=== PATIENT | male | born 1960 | race Caucasian/White ===

== ENCOUNTER → 2017-01-25 | Outpatient (CLI) | payer BC ==
--- NOTE | 2017-01-25 21:34 | PN ---
This patient was diagnosed having severe obstructive sleep apnea. Recently on a home sleep study the patient was found to have an apnea-hypopnea index of 49. The patient also demonstrated having severe nocturnal oxygen desaturations. At that point the patient was given an Auto CPAP unit with a minimum pressure of 5, maximum pressure of 20, and the patient is coming in for a compliancy check. He obtained his CPAP machine approximately 3 weeks ago. He is utilizing AirFit P10 nasal pillows. On today's evaluation, the patient has no specific complaints. He is calm and comfortable. He is waking up much more alert and awake during the day and he is happy with the overall clinical response. No snoring at nighttime. He is averaging around 6 to 7 hours of sleep. He goes to bed around 10 p.m., wakes up at 5:30 a.m. in the morning, and he has no major hypersomnia or sleepiness during the day. His Marks score is currently at 7. No sleep paralysis. No hallucinations. No cataplexy. No difficulties in tolerating the CPAP therapy for now. BP is 122/83, pulse 83, respiration 16, temperature 98.4, saturation 95% on room air. Weight is 250. Height is 73 inches. Marks score is 7. Neck size is 17 inches. BMI is 32.8. GENERAL APPEARANCE: Calm, comfortable. HEENT: Short neck. Crowding of posterior pharynx. There is no goiter or neck masses. LUNGS: Diminished breath sounds bilaterally; otherwise clear. Heart sounds are regular rate and rhythm. Normal S1, S2. No S3. No S4. No murmurs. ABDOMEN: Soft, nontender. No organomegaly. EXTREMITIES: There is no edema. There is no cyanosis or clubbing. PLAN: 1. Symptomatic obstructive sleep apnea, severe, with a baseline AHI of 49. The patient is undergoing adequate Auto CPAP therapy. 2. Hypersomnia, improved with CPAP therapy. 3. Snoring, recovered. 4. Obesity with a body mass index of 32.8. PLAN: 1. Encourage weight loss. 2. Obtain CPAP compliancy data from [facility]. The patient seems to be very compliant for now and clinically improved and much more alert and awake during the day. 3. Keep the same settings on the CPAP and keep the same mask interface. 4. See me back in a year's time at the [facility] office for a followup.
== END | disposition home or self-care (01) ==
LOC: SLEEP 14:51
PROVIDERS: ATTEND Internal Medicine Critical Care Medicine
DX: G47.33 Obstructive sleep apnea (adult) (pediatric) (principal); G47.10 Hypersomnia, unspecified; E66.9 Obesity, unspecified; Z68.32 Body mass index [BMI] 32.0-32.9, adult
CPT/HCPCS: 99211

== ENCOUNTER → 2022-12-24 | Outpatient (CLI) | payer BC ==
[2022-12-24 09:16] LABS: African American GFR (CKD) >90 (>60 ml/min/1.73 sqM); Blood Urea Nitrogen 22 mg/dL (9-20); Non-African American GFR(CKD) >90 (>60 ml/min/1.73 sqM)
--- NOTE | 2022-12-24 14:13 | CT ---
EXAMINATION: CT UROGRAM WITHOUT AND WITH IV CONTRAST DATE OF EXAMINATION: 12/24/2022. COMPARISON: None available. INDICATION: Abnormal urine systolically. PROCEDURE: Axial CT of the abdomen and pelvis was performed without and with contrast and sagittal and coronal reformatted images were performed. CT dose lowering techniques were used, to include: aut omated exposure control, adjustment for patient size, and/or use of iterative reconstruction. 100 mL of Isovue-370 was given intravenously. FINDINGS: LOWER CHEST : The visualized lung bases are clear. There are no pleural or pericardial effusions. ABDOMEN: Liver and Biliary system: Normal. Adrenal glands: Normal. Kidneys and ureters: Normal. Spleen: Normal. Pancreas: Normal. Gallbladder: Surgically absent. Lymph nodes, Peritoneum and mesentery: There is no mesenteric or retroperitoneal lymphadenopathy. Gastrointestinal tract: There are no dilated loops of bowel or free intraperitoneal air. The appe ndix is normal. Aorta/IVC: No aortic aneurysm. IVC normal. Abdominal wall: Normal. PELVIS: Fluid: There is no free fluid in the pelvis. Lymph Nodes: There is no pelvic or inguinal lymphadenopathy.. Urinary bladder: Normal. BONES: There are no osseous destructive lesions.. ADDITIONAL SIGNIFICANT FINDINGS: None. IMPRESSION: 1. No renal stones or hydronephrosis. 2. No suspicious renal, urinary tract or bladder lesions otherwise identified. 3. No acute findings identified.
== END | disposition home or self-care (01) ==
LOC: RADCTMAIN 08:38
PROVIDERS: ATTEND Urology
DX: R82.89 Other abnormal findings on cytological and histological examination of urine (principal)
CPT/HCPCS: 82565; 84520; 74178; 36415; 74400; Q9967

== ENCOUNTER → 2023-10-17 | Outpatient (CLI) | payer BC ==
--- NOTE | 2023-10-17 11:03 | US ---
EXAMINATION TYPE: US venous doppler duplex LE RT DATE OF EXAM: 10/17/2023 10:53 AM COMPARISON: NONE CLINICAL INDICATION: Male, 62 years old with history of I80.9 PHLEBITIS; rt leg edema SIDE PERFORMED: Right TECHNIQUE: The lower extremity deep venous system is examined utilizing real time linear array sonog hillary with graded compression, doppler sonography and color-flow sonography. VESSELS IMAGED: Common Femoral Vein Deep Femoral Vein Greater Saphenous Vein * Femoral Vein Popliteal Vein Small Saphenous Vein * Proximal Calf Veins (* superficial vessels) Right Leg: Negative for DVT IMPRESSION: Grayscale, color doppler, spectral doppler imaging performed of the deep veins of the lo wer extremities. There is normal flow, compressibility, vascular waveforms.
== END | disposition home or self-care (01) ==
LOC: RADUSWWP 10:31
PROVIDERS: ATTEND Orthopaedic Surgery
DX: I80.9 Phlebitis and thrombophlebitis of unspecified site (principal)